=== PATIENT | female | born 1995 | race Caucasian/White ===

== ENCOUNTER 2017-03-13 18:22 | Emergency (ER) | payer MEDICAID ==
--- NOTE | 2017-03-13 19:33 | CPEKG ---
Heart Rate: 50 RR Interval: 1200 P-R Interval: 140 QRSD Interval: 82 QT Interval: 524 QTC Interval: 478 P Paulina: 31 QRS Paulina: 71 T Wave Paulina: 62 EKG Severity - BORDERLINE ECG - EKG Impression: SINUS RHYTHM EKG Impression: BORDERLINE PROLONGED QT INTERVAL Electronically Signed By: Marcelo Fan 13-Mar-2017 22:13:50
[2017-03-13] MEDS ORDERED: ONDANSETRON 4 MG/2 ML VIAL IVP ONE (20:19)
[2017-03-13] MEDS ORDERED: NS 1,000 ML IV ONE ×2 (20:26→21:35)
[2017-03-13 20:31] LABS: % IMMATURE GRANULYOCYTES 0.4 % (0.0-1.1); ABSOLUTE IMMATURE GRANULOCYTES 0.04 10^3/uL (0.00-0.10); ADD DIFF? NO; ADD MORPH? NO; ADD SCAN? NO; ATYPICAL LYMPHOCYTE FLAG 10 (0-99); FRAGMENT RBC FLAG 0 (0-99); HEMATOCRIT 41.4 % (38.0-47.0); HEMOGLOBIN 13.9 g/dL (12.6-16.3); LEFT SHIFT FLG 0 (0-99); LIPEMIA HEMOLYSIS FLAG 80 (0-99); MEAN CELL HEMOGLOBIN CONCENTR. 33.6 g/dL (32.4-36.7); MEAN CELL VOLUME 92.2 fL (81.5-99.8); MEAN PLATELET VOLUME 9.8 fL (8.7-11.7); PLATELET CLUMPS FLAG 0 (0-99); PLATELET COUNT 281 10^3/uL (150-400); RED BLOOD CELL COUNT 4.49 10^6/uL (4.18-5.33); RED CELL DISTRIBUTION WIDTH 12.4 % (11.5-15.2)
[2017-03-13 20:38] LABS: ANION GAP 13 mEq/L (8-16); CALCIUM 9.4 mg/dL (8.5-10.4); CARBON DIOXIDE 24 mEq/l (22-31); CHLORIDE 101 mEq/L (97-110); CREATININE 0.7 mg/dL (0.6-1.0); GLOMERULAR FILTRATION RATE > 60; GLUCOSE 86 mg/dL (70-100); POTASSIUM 3.9 mEq/L (3.5-5.2); SODIUM 138 mEq/L (134-144)
[2017-03-13] MEDS ORDERED: LORazepam 2 MG/ML INJ IVP ONE (20:59)
--- NOTE | 2017-03-13 21:14 | EDPHY ---
H & P Stated Complaint: hx insomnia/7 hrs ago took a freind 30mg narcotic pill/nausea Time Seen by Provider: 03/13/17 19:43 HPI/ROS: CHIEF COMPLAINT: Insomnia HISTORY OF PRESENT ILLNESS: The patient presents to the ED with issues surrounding ongoing insomnia. The patient is currently managing her symptoms of insomnia with Ambien. She reports that medication is having variable success with her Ambien. The patient did take a narcotic medication earlier this evening which was not prescribed to her. She took a 30 mg tablet approximately 8 hours ago. She did develop some nausea this evening. She was concerned that she may be developing a significant reaction presents to the ED for further evaluation. The patient denies suicidal or homicidal ideation. She has a history of trying multiple medications in the past for her insomnia including antipsychotics, trazodone and other medications such as Lunesta. The patient is adamant that she is not dangerous to herself. She is scheduled to follow up with her primary care provider regarding her ongoing insomnia. REVIEW OF SYSTEMS: A comprehensive 10 point review of systems is otherwise negative aside from elements mentioned in the history of present illness. Source: Patient Exam Limitations: No limitations - Personal History LMP (Females 10-55): 15-21 Days Ago Current Tetanus/Diphtheria Vaccine: No - Medical/Surgical History Hx Asthma: No Hx Chronic Respiratory Disease: No Hx Diabetes: No Hx Cardiac Disease: No Hx Renal Disease: No Hx Cirrhosis: No Hx Alcoholism: No Hx HIV/AIDS: No Hx Splenectomy or Spleen Trauma: No Other PMH: Lap 11/13/14. WPW, ablation 2011. chronic pain - Social History Smoking Status: Former smoker Alcohol Use: None Drug Use: None - Physical Exam Exam: General Appearance: Alert, no distress Eyes: Pupils equal and round no pallor or injection ENT, Mouth: Mucous membranes moist Respiratory: There are no retractions, lungs are clear to auscultation Cardiovascular: Regular rate and rhythm Gastrointestinal: Abdomen is soft and nontender, no masses, bowel sounds normal Neurological: A&O, normal motor function, normal sensory exam, normal cranial nerves Skin: Warm and dry, no rashes Musculoskeletal: Neck is supple nontender Extremities: symmetrical, full range of motion Psychiatric: Patient is oriented X 3, there is no agitation, denies suicidal ideation, normal thought process, denies hallucinations, does report insomnia Constitutional: Initial Vital Signs Temperature (C) 36.3 C 03/13/17 18:41 Heart Rate 45 L 03/13/17 18:41 Respiratory Rate 20 03/13/17 18:41 Blood Pressure 100/59 L 03/13/17 18:41 O2 Sat (%) 99 03/13/17 18:41 O2 Delivery Mode Room Air Allergies/Adverse Reactions: Sulfa (Sulfonamide Antibiotics) Allergy (Verified 03/13/17 18:40) Home Medications: Medication Instructions Recorded Ambien 03/13/17 Vicodin 5-300 mg Tablet 03/13/17 Medical Decision Making - Diagnostics EKG Interpretation: EKG: Complete interpretation has been separately recorded in the [facility] archive. Summary impression: Sinus rhythm, rate 50. ED Course/Re-evaluation: The patient was placed on a air vice marshal. She has no hypoxemia or evidence of respiratory depression. The patient was feeling mildly nauseous. She received 4 mg of IV Zofran. The patient was monitored in the ED for several hours without evidence of hypoxemia. The patient does plan to follow up with her regular primary care provider regarding her ongoing insomnia. The patient will be discharged home with customary aftercare instructions and return precautions. Patient is given the contact number for [facility]. She may need to follow up with a psychiatrist regarding her fairly refractory insomnia. Differential Diagnosis: Differential diagnosis considered includes narcotic overdose, insomnia, respiratory depression, arrhythmia - Data Points Laboratory Results: Laboratory Results 03/13/17 20:05 03/13/17 20:05 03/13/17 03/13/17 03/13/17 20:05 20:05 20:05 WBC 8.95 10^3/uL 10^3/uL (3.80-9.50) RBC 4.49 10^6/uL 10^6/uL (4.18-5.33) Hgb 13.9 g/dL g/dL (12.6-16.3) Hct 41.4 % % (38.0-47.0) MCV 92.2 fL fL (81.5-99.8) MCH 31.0 pg pg (27.9-34.1) MCHC 33.6 g/dL g/dL (32.4-36.7) RDW 12.4 % % (11.5-15.2) Plt Count 281 10^3/uL 10^3/uL (150-400) MPV 9.8 fL fL (8.7-11.7) Neut % (Auto) 62.5 % % (39.3-74.2) Lymph % (Auto) 24.6 % % (15.0-45.0) [place] % (Auto) 8.2 % % (4.5-13.0) Eos % (Auto) 3.9 % % (0.6-7.6) Baso % (Auto) 0.4 % % (0.3-1.7) Nucleat RBC Rel Count 0.0 % % (0.0-0.2) Absolute Neuts (auto) 5.59 10^3/uL 10^3/uL (1.70-6.50) Absolute Lymphs (auto) 2.20 10^3/uL 10^3/uL (1.00-3.00) Absolute Monos (auto) 0.73 10^3/uL 10^3/uL (0.30-0.80) Absolute Eos (auto) 0.35 10^3/uL 10^3/uL (0.03-0.40) Absolute Basos (auto) 0.04 10^3/uL 10^3/uL (0.02-0.10) Absolute Nucleated RBC 0.00 10^3/uL 10^3/uL (0-0.01) Immature Gran % 0.4 % % (0.0-1.1) Immature Gran # 0.04 10^3/uL 10^3/uL (0.00-0.10) Sodium 138 mEq/L mEq/L (134-144) Potassium 3.9 mEq/L mEq/L (3.5-5.2) Chloride 101 mEq/L mEq/L (97-110) Carbon Dioxide 24 mEq/l mEq/l (22-31) Anion Gap 13 mEq/L mEq/L (8-16) BUN 13 mg/dL mg/dL (7-23) Creatinine 0.7 mg/dL mg/dL (0.6-1.0) Estimated GFR > 60 Glucose 86 mg/dL mg/dL (70-100) Calcium 9.4 mg/dL mg/dL (8.5-10.4) Beta HCG, Qual NEGATIVE Medications Given: Discontinued Medications Sodium Chloride (Ns) 1,000 mls @ 0 mls/hr IV ONCE ONE PRN Reason: Wide Open Stop: 03/13/17 20:27 Last Admin: 03/13/17 20:30 Dose: 1,000 mls Lorazepam (Ativan Injection) 1 mg IVP EDNOW ONE Stop: 03/13/17 21:00 Last Admin: 03/13/17 21:35 Dose: 1 mg Ondansetron HCl (Zofran) 4 mg IVP EDNOW ONE Stop: 03/13/17 20:20 Last Admin: 03/13/17 20:24 Dose: 4 mg Departure - Departure Disposition: Home, Routine, Self-Care Clinical Impression: Insomnia Condition: Good Instructions: Insomnia (ED) Additional Instructions: 1. Please follow-up with your primary care provider as scheduled. 2. Please return to the emergency department for any worsening symptoms or other concerns. 3. [facility] does operate a 24/7 psychiatric crisis unit located at [address] [place] [address]. The telephone number for the 24 hour crisis center is [phone]. 4. Please return to the ED if you are feeling suicidal, having thoughts of harming yourself/others or should you feel unsafe or have worsening symptoms. Referrals: [facility],. [Clinic] - As per Instructions
[2017-03-13] MEDS ORDERED: LORazepam 2 MG/ML INJ ONE (21:29)
[2017-03-13 22:57] VITALS: BP 107/68; PULSE 56; RESP 14; TEMP 97.7; O2SAT 95
== END 2017-03-13 22:56 | disposition home or self-care (01) ==
DX: G47.00 Insomnia, unspecified (principal); Z87.891 Personal history of nicotine dependence
CPT/HCPCS: 96374; J2060; J2405

== ENCOUNTER 2017-06-20 16:57 | Emergency (ER) | payer MEDICAID ==
[2017-06-20] MEDS ORDERED: NS 1,000 ML IV ONE (17:00)
[2017-06-20] MEDS ORDERED: DIAZEPAM 10 MG/2 ML SYR IVP ONE (17:01)
[2017-06-20 17:11] VITALS: TEMP 97.3
[2017-06-20 17:24] LABS: % IMMATURE GRANULYOCYTES 0.3 % (0.0-1.1); ABSOLUTE IMMATURE GRANULOCYTES 0.03 10^3/uL (0.00-0.10); ADD DIFF? NO; ADD MORPH? NO; ADD SCAN? NO; ATYPICAL LYMPHOCYTE FLAG 10 (0-99); FRAGMENT RBC FLAG 0 (0-99); HEMATOCRIT 36.9 % (38.0-47.0); HEMOGLOBIN 12.8 g/dL (12.6-16.3); LEFT SHIFT FLG 0 (0-99); LIPEMIA HEMOLYSIS FLAG 90 (0-99); MEAN CELL HEMOGLOBIN 30.8 pg (27.9-34.1); MEAN CELL HEMOGLOBIN CONCENTR. 34.7 g/dL (32.4-36.7); MEAN CELL VOLUME 88.9 fL (81.5-99.8); MEAN PLATELET VOLUME 9.3 fL (8.7-11.7); PLATELET CLUMPS FLAG 0 (0-99); PLATELET COUNT 299 10^3/uL (150-400); RED BLOOD CELL COUNT 4.15 10^6/uL (4.18-5.33); RED CELL DISTRIBUTION WIDTH 12.1 % (11.5-15.2)
--- NOTE | 2017-06-20 17:36 | EDPHY ---
H & P Time Seen by Provider: 06/20/17 17:32 HPI/ROS: HPI: Ms Espinal is a 21 yrs, female who presents with Chief Complaint: Menstrual cramps Location: pelvic Quality: Cramping Duration: Starting this morning, lasting approximately 3-5 hours Signs and Symptoms: no vaginal discharge, no nausea, no vomiting, no diarrhea, no dysuria, no indigestion Timing: Sudden onset intermittent in nature Severity: 08/11 Context: Patient has a history of endometriosis diagnosed by a laparoscopy per patient unable to obtain chart for review as performed outside hospital as well as severe menstrual cramping. She has been followed by pain management at the [facility] and is on a pain contract over the last 1-3 months. She is on Percocet 10 mg every 4-6 hours daily. States that her mom disturbance medications to her but she does not have any medication pills on her currently. Menses started this morning. cycles normal only every 28-30 days lasting approximately 7 days with a menstrual cramping being most severe in days 1 through 3. Last menstrual period is now. Patient reports that pain now is similar to prior episodes. Denies any new or different symptoms today as compared to the prior episodes. Modifying Factors: Has not tried any [id number] medications including NSAID. EMS gave the patient fentanyl on route to the ER. Comment: ROS: Eyes: No blurred vision Respiratory: No shortness of breath, no cough Cardiovascular: No chest pain Gastrointestinal: No nausea, no vomiting no diarrhea Genitourinary: No dysuria Extremities: No myalgias Neurologic: No weakness, no numbness Skin: No rashes Hematologic: No bruising, no bleeding MEDICAL/SURGICAL HISTORY: Cardiac surgery secondary to [id number]-[id number] with ablation in 2011. Denies history of asthma, chronic respiratory disease, diabetes, renal disease, cirrhosis, HIV/aids, Social History: Former smoker. Smoking Status: Former smoker Physical Exam: CONSTITUTIONAL: Extremely well-appearing in young adult white female, awake and alert, no obvious distress HEENT: Atraumatic and normocephalic, PERRL, EOMI. Tympanic membranes clear. Oropharynx clear, no exudate and moist pink mucosa. Airway patent. No lymphadenopathy. No meningismus. Cardiovascular: Normal S1/S2, regular rate, regular rhythm, without murmur rub or gallop. PULMONARY/CHEST: Symmetrical and nontender. Clear to auscultation bilaterally Good air movement. No accessory muscle usage. ABDOMEN: Soft, nondistended, mild lower abdomen nonfocal tenderness, no rebound , no guarding, no peritoneal signs, no masses or organomegaly. No CVAT. EXTREMITIES: 2/2 pulses, no deformities, no clubbing, no cyanosis or edema. NEUROLOGICAL: no focal neuro deficits. GCS 15. SKIN: Warm and dry, no erythema. no rash. Good capillary refill. Constitutional: Initial Vital Signs Temperature (C) 36.3 C 06/20/17 17:10 Heart Rate 88 06/20/17 17:10 Respiratory Rate 18 06/20/17 17:10 Blood Pressure 113/74 06/20/17 17:10 O2 Sat (%) 94 06/20/17 17:10 O2 Delivery Mode Room Air Allergies/Adverse Reactions: Sulfa (Sulfonamide Antibiotics) Allergy (Verified 03/13/17 18:40) Home Medications: Medication Instructions Recorded Ambien 03/13/17 Vicodin 5-300 mg Tablet 03/13/17 Cyclobenzaprine [Flexeril 10 MG 10 mg PO TID PRN #15 tab 06/20/17 (*)] Medical Decision Making ED Course/Re-evaluation: Labs, urinalysis, urine , IV fluids, IV medications Advised patient that as she is on pain management contract that ER will not prescribe chronic opiate pain medications Given 1 L normal saline and IV Valium 5 mg for muscle cramps Afebrile. No systemic signs. Revealed pelvic ultrasound on 05/27/2016 results that showed bilateral adnexal vasculature and possible pelvic congestion syndrome. UA shows no signs of infection Advised to follow up with [facility]ALTH[facility]ARE [facility] and pain management Moderate pain relief at discharge. Will give prescription for some muscle relaxers for dysmenorrhea until her follow-up pain management appointment in 1 week. Differential Diagnosis: Abdominal pain in a female including but not limited to ovarian cyst, pelvic inflammatory disease, ovarian torsion, urinary tract infection, and appendicitis. - Data Points Laboratory Results: Laboratory Results 06/20/17 17:10 06/20/17 17:10 06/20/17 06/20/17 06/20/17 18:54 18:50 17:10 WBC RBC Hgb Hct MCV MCH MCHC RDW Plt Count MPV Neut % (Auto) Lymph % (Auto) [place] % (Auto) Eos % (Auto) Baso % (Auto) Nucleat RBC Rel Count Absolute Neuts (auto) Absolute Lymphs (auto) Absolute Monos (auto) Absolute Eos (auto) Absolute Basos (auto) Absolute Nucleated RBC Immature Gran % Immature Gran # Sodium 139 mEq/L mEq/L (134-144) Potassium 4.0 mEq/L mEq/L (3.5-5.2) Chloride 105 mEq/L mEq/L (97-110) Carbon Dioxide 20 mEq/l L mEq/l (22-31) Anion Gap 14 mEq/L mEq/L (8-16) BUN 6 mg/dL L mg/dL (7-23) Creatinine 0.7 mg/dL mg/dL (0.6-1.0) Estimated GFR > 60 Glucose 85 mg/dL mg/dL (70-100) Calcium 9.6 mg/dL mg/dL (8.5-10.4) Total Bilirubin 0.4 mg/dL mg/dL (0.1-1.4) Conjugated Bilirubin 0.2 mg/dL mg/dL (0.0-0.5) Unconjugated Bilirubin 0.2 mg/dL mg/dL (0.0-1.1) AST 15 IU/L IU/L (14-46) ALT 24 IU/L IU/L (9-52) Alkaline Phosphatase 54 IU/L IU/L (38-126) Total Protein 7.3 g/dL g/dL (6.3-8.2) Albumin 4.3 g/dL g/dL (3.5-5.0) Lipase 116 IU/L IU/L (23-300) Urine Color YELLOW Urine Appearance CLEAR Urine pH 7.0 (5.0-7.5) Ur Specific [place] 1.012 (1.002-1.030) Urine Protein NEGATIVE (NEGATIVE) Urine Ketones TRACE H (NEGATIVE) Urine Blood 2+ H (NEGATIVE) Urine Nitrate NEGATIVE (NEGATIVE) Urine Bilirubin NEGATIVE (NEGATIVE) Urine Urobilinogen NEGATIVE EU EU (0.2-1.0) Ur Leukocyte Esterase NEGATIVE (NEGATIVE) Urine RBC 1-3 /hpf /hpf (0-3) Urine WBC 1-3 /hpf /hpf (0-3) Ur Epithelial Cells TRACE /lpf /lpf (NONE-1+) Urine Mucus TRACE /lpf /lpf (NONE-1+) Urine Glucose NEGATIVE (NEGATIVE) Urine Test NEGATIVE 06/20/17 17:10 WBC 9.03 10^3/uL 10^3/uL (3.80-9.50) RBC 4.15 10^6/uL L 10^6/uL (4.18-5.33) Hgb 12.8 g/dL g/dL (12.6-16.3) Hct 36.9 % L % (38.0-47.0) MCV 88.9 fL fL (81.5-99.8) MCH 30.8 pg pg (27.9-34.1) MCHC 34.7 g/dL g/dL (32.4-36.7) RDW 12.1 % % (11.5-15.2) Plt Count 299 10^3/uL 10^3/uL (150-400) MPV 9.3 fL fL (8.7-11.7) Neut % (Auto) 62.9 % % (39.3-74.2) Lymph % (Auto) 27.6 % % (15.0-45.0) [place] % (Auto) 6.9 % % (4.5-13.0) Eos % (Auto) 1.9 % % (0.6-7.6) Baso % (Auto) 0.4 % % (0.3-1.7) Nucleat RBC Rel Count 0.0 % % (0.0-0.2) Absolute Neuts (auto) 5.68 10^3/uL 10^3/uL (1.70-6.50) Absolute Lymphs (auto) 2.49 10^3/uL 10^3/uL (1.00-3.00) Absolute Monos (auto) 0.62 10^3/uL 10^3/uL (0.30-0.80) Absolute Eos (auto) 0.17 10^3/uL 10^3/uL (0.03-0.40) Absolute Basos (auto) 0.04 10^3/uL 10^3/uL (0.02-0.10) Absolute Nucleated RBC 0.00 10^3/uL 10^3/uL (0-0.01) Immature Gran % 0.3 % % (0.0-1.1) Immature Gran # 0.03 10^3/uL 10^3/uL (0.00-0.10) Sodium Potassium Chloride Carbon Dioxide Anion Gap BUN Creatinine Estimated GFR Glucose Calcium Total Bilirubin Conjugated Bilirubin Unconjugated Bilirubin AST ALT Alkaline Phosphatase Total Protein Albumin Lipase Urine Color Urine Appearance Urine pH Ur Specific [place] Urine Protein Urine Ketones Urine Blood Urine Nitrate Urine Bilirubin Urine Urobilinogen Ur Leukocyte Esterase Urine RBC Urine WBC Ur Epithelial Cells Urine Mucus Urine Glucose Urine Test Medications Given: Discontinued Medications Diazepam (Valium Injection) 5 mg IVP EDNOW ONE Stop: 06/20/17 17:02 Last Admin: 06/20/17 17:27 Dose: 5 mg Sodium Chloride (Ns) 1,000 mls @ 0 mls/hr IV EDNOW ONE; Wide Open PRN Reason: Protocol Stop: 06/20/17 17:01 Last Admin: 06/20/17 17:27 Dose: 1,000 mls Ketamine HCl (Ketamine) 50 mg NASAL EDNOW ONE Stop: 06/20/17 17:53 Last Admin: 06/20/17 18:00 Dose: 50 mg Ketorolac Tromethamine (Toradol) 30 mg IVP EDNOW ONE Stop: 06/20/17 17:53 Last Admin: 06/20/17 18:01 Dose: 30 mg Ondansetron HCl (Zofran) 4 mg IVP EDNOW ONE Stop: 06/20/17 17:55 Last Admin: 06/20/17 17:58 Dose: 4 mg Departure - Departure Disposition: Home, Routine, Self-Care Clinical Impression: Dysmenorrhea Clinical Impression: (Ruled Out): Menorrhagia with regular cycle Condition: Good Instructions: Dysmenorrhea (ED) Referrals: Patient,NotPresent [Unknown] - As per Instructions Immanuel Maddox MD [Medical Doctor] - As per Instructions (Follow up [facility] ) Prescriptions: Cyclobenzaprine [Flexeril 10 MG (*)] 10 mg PO TID PRN #15 tab PRN Reason: Spasms
[2017-06-20 17:43] LABS: ALANINE AMINOTRANSFERASE 24 IU/L (9-52); ALBUMIN 4.3 g/dL (3.5-5.0); ALKALINE PHOSPHATASE 54 IU/L (38-126); ANION GAP 14 mEq/L (8-16); ASPARTATE AMINOTRANSFERASE 15 IU/L (14-46); BILIRUBIN,TOTAL 0.4 mg/dL (0.1-1.4); BILIRUBIN-CONJUGATED 0.2 mg/dL (0.0-0.5); BILIRUBIN-UNCONJUGATED 0.2 mg/dL (0.0-1.1); CALCIUM 9.6 mg/dL (8.5-10.4); CARBON DIOXIDE 20 mEq/l (22-31); CHLORIDE 105 mEq/L (97-110); CREATININE 0.7 mg/dL (0.6-1.0); GLOMERULAR FILTRATION RATE > 60; GLUCOSE 85 mg/dL (70-100); SODIUM 139 mEq/L (134-144); TOTAL PROTEIN 7.3 g/dL (6.3-8.2)
[2017-06-20] MEDS ORDERED: KETAMINE 500 MG/10 ML VIAL NASAL ONE (17:52)
[2017-06-20] MEDS ORDERED: KETOROLAC 15 MG/1 ML SDV IVP ONE (17:52)
[2017-06-20] MEDS ORDERED: ONDANSETRON 4 MG/2 ML VIAL IVP ONE (17:54)
[2017-06-20 18:25] VITALS: O2SAT 98
[2017-06-20 18:58] LABS: COLOR YELLOW; LEUKOCYTE ESTERASE,URINE NEGATIVE (NEGATIVE); NITRITE,URINE NEGATIVE (NEGATIVE)
[2017-06-20 19:00] LABS: MUCUS TRACE /lpf (NONE-1+)
[2017-06-20 19:49] VITALS: BP 103/78; PULSE 78; RESP 15
== END 2017-06-20 19:49 | disposition home or self-care (01) ==
LOC: EDUNIT#
DX: N94.6 Dysmenorrhea, unspecified (principal); E86.9 Volume depletion, unspecified; Z87.891 Personal history of nicotine dependence
CPT/HCPCS: 96374; J1885; J2405

== ENCOUNTER 2017-10-04 20:25 | Emergency (ER) | payer MEDICAID ==
--- NOTE | 2017-10-04 20:59 | EDPHY ---
H & P Time Seen by Provider: 10/04/17 20:43 HPI/ROS: CHIEF COMPLAINT: Neck and back stiffness HISTORY OF PRESENT ILLNESS: The patient is a 21-year-old female who presents emergency department with neck and back stiffness x3 days. She feels as though she cannot turn her head. Denies your symptoms worsen then she had significant pain with even the slightest movement of her neck. The patient took 3 Vicodin tablets and states her symptoms are improved at this point. Patient has no numbness or tingling. Her mother states she felt hot and the patient reports chills. Patient states that she has mild light sensitivity. She has had no nausea or vomiting. Patient states that she has felt diffusely achy and "slightly sick" since this morning. REVIEW OF SYSTEMS: My complete review of systems is negative except as mentioned in the HPI. Past Medical/Surgical History: Includes WPW, chronic pain Past surgical history: Ablation Social history: The patient does not smoke. Smoking Status: Former smoker Physical Exam: 36.7, 104/64, 113, 18, 95% on room air GENERAL: Well-appearing, in no acute distress, alert. HEENT: Eyes normal to inspection, normal pharynx, no signs of dehydration. NECK: No thyromegaly, no lymphadenopathy, supple. No spinal tenderness. The patient does have resistance to voluntarily moving her neck due to the pain. Negative Kernig sign. Due to the patient's discomfort she would not allow me to perform Brudzinski's RESPIRATORY: Clear to auscultation bilaterally, no rales, rhonchi or wheezing. CVS: Regular rate and rhythm, no rubs, murmurs, or gallops. ABDOMEN: Soft, nontender, nondistended, no organomegaly. BACK: Normal to inspection, no CVA tenderness. SKIN: Normal color, no rash, warm, dry. No pallor. EXTREMITIES: No pedal edema, no calf tenderness, no Homans sign or cords, no joint swelling. NEURO/PSYCH: Higher functions: Alert and Oriented x3. Normal speech and cognition. Normal mood and affect. Cranial nerves: Normal as tested. Cerebellar: Normal as tested. Good finger to nose, good [id number], normal gait. Peripheral exam: Normal motor exam. Normal sensation. Normal reflexes. Constitutional: Initial Vital Signs Temperature (C) 36.7 C 10/04/17 20:28 Heart Rate 113 H 10/04/17 20:28 Respiratory Rate 18 10/04/17 20:28 Blood Pressure 104/64 10/04/17 20:28 O2 Sat (%) 95 10/04/17 20:28 O2 Delivery Mode Room Air Allergies/Adverse Reactions: Sulfa (Sulfonamide Antibiotics) Allergy (Verified 03/13/17 18:40) Home Medications: Medication Instructions Recorded Ambien 03/13/17 Vicodin 5-300 mg Tablet 03/13/17 Ibuprofen 600 mg PO TID #15 tablet 10/04/17 LORazepam [Ativan (*)] 1 mg PO TID #11 tab 10/04/17 oxyCODONE/APAP 5/325 [Percocet 1 - 2 tab PO Q4PRN PRN #11 tab 10/04/17 5/325 (*)] Medical Decision Making ED Course/Re-evaluation: In the emergency department I discussed possible etiologies with the patient and her mother. I answered all her questions. Patient was given Toradol 30 mg IV, fentanyl 25 mg IV, Valium 2.5 mg IV. Laboratory studies were ordered. 2200: I rechecked the patient. She states she is feeling better after the medication. She points to the left side of her neck and states that it has mild discomfort to light touch. She is able to turn her head fully to the right to show me the left side of her neck. Kernig's and Brudzinski sign are negative. No focal neurologic deficit. Repeat vital signs: 36.6, 90/57, 74, 15, 95% on room air 2220: Patient is feeling better. She has no focal neurologic deficits on exam. No signs of meningismus. 1050: Patient again states that she is feeling better. She is able to range her neck. She has no focal neurologic deficits. No signs of meningismus. I discussed the plan with the patient. I answered all her questions. She will be given a prescription of Percocet and Ativan. This will treat pain and muscle spasm. She was instructed not to use Vicodin with Percocet. She is given warnings prior to leaving. She will return with worsening symptoms. Differential Diagnosis: My differential includes but is not limited to meningitis, muscle spasm, mass, malignancy, hematoma, disc herniation - Data Points Laboratory Results: Laboratory Results 10/04/17:50 10/04/17 20:50 10/04/17 10/04/17 10/04/17 20:50 20:50 20:50 WBC 6.24 10^3/uL 10^3/uL (3.80-9.50) RBC 4.31 10^6/uL 10^6/uL (4.18-5.33) Hgb 13.4 g/dL g/dL (12.6-16.3) Hct 37.8 % L % (38.0-47.0) MCV 87.7 fL fL (81.5-99.8) MCH 31.1 pg pg (27.9-34.1) MCHC 35.4 g/dL g/dL (32.4-36.7) RDW 12.3 % % (11.5-15.2) Plt Count 212 10^3/uL 10^3/uL (150-400) MPV 9.8 fL fL (8.7-11.7) Neut % (Auto) 78.3 % H % (39.3-74.2) Lymph % (Auto) 14.7 % L % (15.0-45.0) [place] % (Auto) 5.0 % % (4.5-13.0) Eos % (Auto) 1.3 % % (0.6-7.6) Baso % (Auto) 0.5 % % (0.3-1.7) Nucleat RBC Rel Count 0.0 % % (0.0-0.2) Absolute Neuts (auto) 4.89 10^3/uL 10^3/uL (1.70-6.50) Absolute Lymphs (auto) 0.92 10^3/uL L 10^3/uL (1.00-3.00) Absolute Monos (auto) 0.31 10^3/uL 10^3/uL (0.30-0.80) Absolute Eos (auto) 0.08 10^3/uL 10^3/uL (0.03-0.40) Absolute Basos (auto) 0.03 10^3/uL 10^3/uL (0.02-0.10) Absolute Nucleated RBC 0.00 10^3/uL 10^3/uL (0-0.01) Immature Gran % 0.2 % % (0.0-1.1) Immature Gran # 0.01 10^3/uL 10^3/uL (0.00-0.10) Sodium 139 mEq/L mEq/L (134-144) Potassium 4.1 mEq/L mEq/L (3.5-5.2) Chloride 104 mEq/L mEq/L (97-110) Carbon Dioxide 20 mEq/l L mEq/l (22-31) Anion Gap 15 mEq/L mEq/L (8-16) BUN 8 mg/dL mg/dL (7-23) Creatinine 0.8 mg/dL mg/dL (0.6-1.0) Estimated GFR > 60 Glucose 86 mg/dL mg/dL (70-100) Calcium 9.4 mg/dL mg/dL (8.5-10.4) Beta HCG, Qual NEGATIVE Medications Given: Discontinued Medications Diazepam (Valium Injection) 2.5 mg IVP EDNOW ONE Stop: 10/04/17 21:02 Last Admin: 10/04/17 21:17 Dose: 2.5 mg Fentanyl (Sublimaze) 25 mcg IVP EDNOW ONE Stop: 10/04/17 21:01 Last Admin: 10/04/17 21:16 Dose: 25 mcg Ketorolac Tromethamine (Toradol) 30 mg IVP EDNOW ONE Stop: 10/04/17 21:01 Last Admin: 10/04/17 21:16 Dose: 30 mg Departure - Departure Disposition: Home, Routine, Self-Care Clinical Impression: Neck pain Back pain Qualifiers: Back pain location: back pain in other location Chronicity: acute Qualified Code(s): M54.9 - Dorsalgia, unspecified Condition: Fair Instructions: Oxycodone/Acetaminophen (By mouth), Lorazepam (By mouth), Acute Neck Pain (ED) Additional Instructions: Return with increasing pain, fever, weakness, numbness, headache or any other concerns. Referrals: [facility] [Other] - 1-2 days without fail Prescriptions: Ibuprofen 600 mg PO TID #15 tablet LORazepam [Ativan (*)] 1 mg PO TID #11 tab oxyCODONE/APAP 5/325 [Percocet 5/325 (*)] 1 - 2 tab PO Q4PRN PRN #11 tab PRN Reason: For Moderate To Severe Pain
[2017-10-04] MEDS ORDERED: fentaNYL 100 MCG/2 ML INJ IVP ONE (21:00)
[2017-10-04] MEDS ORDERED: KETOROLAC 30 MG/1 ML SDV IVP ONE (21:00)
[2017-10-04] MEDS ORDERED: DIAZEPAM 10 MG/2 ML SYR IVP ONE (21:01)
[2017-10-04 21:07] LABS: % IMMATURE GRANULYOCYTES 0.2 % (0.0-1.1); ABSOLUTE IMMATURE GRANULOCYTES 0.01 10^3/uL (0.00-0.10); ADD DIFF? NO; ADD MORPH? NO; ADD SCAN? NO; ATYPICAL LYMPHOCYTE FLAG 0 (0-99); FRAGMENT RBC FLAG 0 (0-99); HEMATOCRIT 37.8 % (38.0-47.0); HEMOGLOBIN 13.4 g/dL (12.6-16.3); LEFT SHIFT FLG 0 (0-99); LIPEMIA HEMOLYSIS FLAG 90 (0-99); MEAN CELL HEMOGLOBIN 31.1 pg (27.9-34.1); MEAN CELL HEMOGLOBIN CONCENTR. 35.4 g/dL (32.4-36.7); MEAN CELL VOLUME 87.7 fL (81.5-99.8); MEAN PLATELET VOLUME 9.8 fL (8.7-11.7); PLATELET CLUMPS FLAG 0 (0-99); PLATELET COUNT 212 10^3/uL (150-400); RED BLOOD CELL COUNT 4.31 10^6/uL (4.18-5.33); RED CELL DISTRIBUTION WIDTH 12.3 % (11.5-15.2)
[2017-10-04 21:13] LABS: ANION GAP 15 mEq/L (8-16); CALCIUM 9.4 mg/dL (8.5-10.4); CARBON DIOXIDE 20 mEq/l (22-31); CHLORIDE 104 mEq/L (97-110); CREATININE 0.8 mg/dL (0.6-1.0); GLOMERULAR FILTRATION RATE > 60; GLUCOSE 86 mg/dL (70-100); POTASSIUM 4.1 mEq/L (3.5-5.2); SODIUM 139 mEq/L (134-144)
[2017-10-04 21:25] VITALS: RESP 16
[2017-10-04] MEDS ORDERED: LORAZEPAM 1 MG PREPACK#4 BTL TAKEHOME ONE (22:45)
[2017-10-04] MEDS ORDERED: OXYCODONE/APAP 5/325MG PREPACK#4 BTL TAKEHOME ONE (22:45)
[2017-10-04] MEDS ORDERED: ONDANSETRON 4MG PREPACK#2 BTL TAKEHOME ONE (22:51)
[2017-10-04 23:31] VITALS: BP 95/57; PULSE 70; TEMP 97.3; O2SAT 95
== END 2017-10-04 23:27 | disposition home or self-care (01) ==
DX: M54.2 Cervicalgia (principal); M54.9 Dorsalgia, unspecified; Z87.891 Personal history of nicotine dependence
CPT/HCPCS: 96374; J1885; J3010

== ENCOUNTER 2017-10-10 13:29 | Emergency (ER) | payer MEDICAID ==
[2017-10-10] MEDS ORDERED: NS 1,000 ML IV ONE (13:34)
--- NOTE | 2017-10-10 13:46 | EDPHY ---
H & P HPI/ROS: CHIEF COMPLAINT: Neck and back pain HISTORY OF PRESENT ILLNESS: The patient is a 21-year-old female who presents emergency department for 2nd time with ongoing neck and back stiffness. She was seen in the emergency department on 10/04/2017 by me. The patient states that the medication that she was discharged on improved her symptoms and she was doing better. However she ran out of those medications and is now back. She states her pain is worse when she sleeps at night. She denies any fever. She has had mild chills when her pain gets severe. She has had no focal weakness or numbness. No photophobia. No vomiting. REVIEW OF SYSTEMS: My complete review of systems is negative except as mentioned in the HPI. Past Medical/Surgical History: Includes WPW, chronic pain Past surgical history: Ablation Social history: The patient does not smoke Smoking Status: Former smoker Physical Exam: GENERAL: Well-appearing, in no acute distress, alert. HEENT: Eyes normal to inspection, normal pharynx, no signs of dehydration. NECK: C-collar in place. Placed by EMS. No thyromegaly, no lymphadenopathy, supple. No midline cervical tenderness palpation. Nexus negative. Patient is able to range her head slightly from side to side. No signs of meningismus. Negative Kernig's RESPIRATORY: Clear to auscultation bilaterally, no rales, rhonchi or wheezing. CVS: Regular rate and rhythm, no rubs, murmurs, or gallops. ABDOMEN: Soft, nontender, nondistended, no organomegaly. BACK: Normal to inspection, no CVA tenderness. SKIN: Normal color, no rash, warm, dry. No pallor. EXTREMITIES: No pedal edema, no calf tenderness, no Homans sign or cords, no joint swelling. NEURO/PSYCH: Higher functions: Alert and Oriented x3. Normal speech and cognition. Normal mood and affect. Cranial nerves: Normal as tested. Cerebellar: Normal as tested. Good finger to nose, good [id number], normal gait. Peripheral exam: Normal motor exam. Normal sensation. Normal reflexes. Constitutional: Initial Vital Signs Temperature (C) 36.7 C 10/10/17 13:32 Heart Rate 58 L 10/10/17 13:32 Respiratory Rate 18 10/10/17 13:32 Blood Pressure 89/51 L 10/10/17 13:32 O2 Sat (%) 96 10/10/17 13:32 O2 Delivery Mode Room Air Allergies/Adverse Reactions: Sulfa (Sulfonamide Antibiotics) Allergy (Verified 03/13/17 18:40) Home Medications: Medication Instructions Recorded Ambien 03/13/17 Vicodin 5-300 mg Tablet 03/13/17 Ibuprofen 600 mg PO TID #15 tablet 10/04/17 LORazepam [Ativan (*)] 1 mg PO TID #11 tab 10/04/17 oxyCODONE/APAP 5/325 [Percocet 1 - 2 tab PO Q4PRN PRN #11 tab 10/04/17 5/325 (*)] Cyclobenzaprine [Flexeril] 10 mg PO TID #15 tab 10/10/17 oxyCODONE/APAP 5/325 [Percocet 1 - 2 tab PO Q4PRN PRN #15 tab 10/10/17 5/325 (*)] Medical Decision Making - Diagnostics Imaging Results: Imaging Impressions Cervical Spine MRI 10/10/17 13:48 Impression: 1. Negative MRI examination of the cervical spine. Results called to Dr. Roberta Marina at 3:30 PM ED Course/Re-evaluation: In the Emergency arm discussed possible etiologies with the patient answered all her questions. He is placed in IV. They gave her fentanyl 150 mcg IV. She is given normal saline 500 mL IV for hydration. She was given Valium 5 mg IV for muscle discomfort/spasm. Patient has her 2nd visit to the emergency department. I ordered an MRI of her cervical spine. This is to ensure that her pain is not secondary to disc herniation or other surgical issue. I think it is okay the patient has bacterial meningitis. She is afebrile with a temperature of 36.7degrees. She does not appear septic or toxic. Patient is white blood cell count is normal. She is mildly anemic with hematocrit of 35. Chemistry panel is unremarkable. MRI is cervical spine: Please refer the dictated report by Dr. Brandon Tilley. No acute disease noted. 15 30: I went rechecked the patient. She states she was feeling better. She had more movement of her neck. She had no focal neurologic deficits. I discussed results with the patient. I answered all her questions. I offered her admission to the hospital for further treatment and care. She would prefer discharge home. She states her symptoms feel better. She was given a repeat prescription for Percocet and Flexeril. She will follow up with primary care physician on Thursday. She is given warnings prior to leaving. I do not feel the patient needs a lumbar puncture this time. I do not feel this is meningitis. The patient was given a dose of Toradol prior to leaving to help with the symptoms returning. Differential Diagnosis: My differential includes but is not limited to neck spasm, cervical strain, torticollis, disc herniation, mass, malignancy, viral meningitis, bacterial meningitis - Data Points Laboratory Results: Laboratory Results 10/10/17 13:30 10/10/17 13:30 10/10/17 10/10/17 10/10/17 13:30 13:30 13:30 WBC 6.52 10^3/uL 10^3/uL (3.80-9.50) RBC 4.09 10^6/uL L 10^6/uL (4.18-5.33) Hgb 12.5 g/dL L g/dL (12.6-16.3) Hct 35.7 % L % (38.0-47.0) MCV 87.3 fL fL (81.5-99.8) MCH 30.6 pg pg (27.9-34.1) MCHC 35.0 g/dL g/dL (32.4-36.7) RDW 12.4 % % (11.5-15.2) Plt Count 325 10^3/uL 10^3/uL (150-400) MPV 9.4 fL fL (8.7-11.7) Neut % (Auto) 48.6 % % (39.3-74.2) Lymph % (Auto) 41.1 % % (15.0-45.0) [place]aines % (Auto) 7.8 % % (4.5-13.0) Eos % (Auto) 1.7 % % (0.6-7.6) Baso % (Auto) 0.6 % % (0.3-1.7) Nucleat RBC Rel Count 0.0 % % (0.0-0.2) Absolute Neuts (auto) 3.17 10^3/uL 10^3/uL (1.70-6.50) Absolute Lymphs (auto) 2.68 10^3/uL 10^3/uL (1.00-3.00) Absolute Monos (auto) 0.51 10^3/uL 10^3/uL (0.30-0.80) Absolute Eos (auto) 0.11 10^3/uL 10^3/uL (0.03-0.40) Absolute Basos (auto) 0.04 10^3/uL 10^3/uL (0.02-0.10) Absolute Nucleated RBC 0.00 10^3/uL 10^3/uL (0-0.01) Immature Gran % 0.2 % % (0.0-1.1) Immature Gran # 0.01 10^3/uL 10^3/uL (0.00-0.10) Sodium 144 mEq/L mEq/L (134-144) Potassium 4.0 mEq/L mEq/L (3.5-5.2) Chloride 107 mEq/L mEq/L (97-110) Carbon Dioxide 21 mEq/l L mEq/l (22-31) Anion Gap 16 mEq/L mEq/L (8-16) BUN 9 mg/dL mg/dL (7-23) Creatinine 0.8 mg/dL mg/dL (0.6-1.0) Estimated GFR > 60 Glucose 74 mg/dL mg/dL (70-100) Calcium 9.7 mg/dL mg/dL (8.5-10.4) Beta HCG, Qual NEGATIVE Medications Given: Discontinued Medications Diazepam (Valium Injection) 5 mg IVP EDNOW ONE Stop: 10/10/17 13:49 Last Admin: 10/10/17 14:02 Dose: 5 mg Sodium Chloride (Ns) 1,000 mls @ 0 mls/hr IV ONCE ONE PRN Reason: Wide Open Stop: 10/10/17 13:35 Last Admin: 10/10/17 13:36 Dose: 1,000 mls Departure - Departure Disposition: Home, Routine, Self-Care Clinical Impression: Neck pain Condition: Good Instructions: Acute Neck Pain (ED) Additional Instructions: You need close follow up with your primary care physician on Thursday. Return with increasing pain, headache, fever, vomiting, weakness, numbness or any other concerns. The MRI of your cervical spine was normal. Referrals: [facility] [Other] - 1-2 days without fail Prescriptions: Cyclobenzaprine [Flexeril] 10 mg PO TID #15 tab oxyCODONE/APAP 5/325 [Percocet 5/325 (*)] 1 - 2 tab PO Q4PRN PRN #15 tab PRN Reason: For Moderate To Severe Pain
[2017-10-10] MEDS ORDERED: DIAZEPAM 10 MG/2 ML SYR IVP ONE (13:48)
[2017-10-10 14:00] LABS: % IMMATURE GRANULYOCYTES 0.2 % (0.0-1.1); ABSOLUTE IMMATURE GRANULOCYTES 0.01 10^3/uL (0.00-0.10); ADD DIFF? NO; ADD MORPH? NO; ADD SCAN? NO; ATYPICAL LYMPHOCYTE FLAG 50 (0-99); FRAGMENT RBC FLAG 0 (0-99); HEMATOCRIT 35.7 % (38.0-47.0); HEMOGLOBIN 12.5 g/dL (12.6-16.3); LEFT SHIFT FLG 0 (0-99); LIPEMIA HEMOLYSIS FLAG 90 (0-99); MEAN CELL HEMOGLOBIN 30.6 pg (27.9-34.1); MEAN CELL VOLUME 87.3 fL (81.5-99.8); MEAN PLATELET VOLUME 9.4 fL (8.7-11.7); PLATELET CLUMPS FLAG 0 (0-99); PLATELET COUNT 325 10^3/uL (150-400); RED BLOOD CELL COUNT 4.09 10^6/uL (4.18-5.33); RED CELL DISTRIBUTION WIDTH 12.4 % (11.5-15.2)
[2017-10-10 14:07] LABS: ANION GAP 16 mEq/L (8-16); CALCIUM 9.7 mg/dL (8.5-10.4); CARBON DIOXIDE 21 mEq/l (22-31); CHLORIDE 107 mEq/L (97-110); CREATININE 0.8 mg/dL (0.6-1.0); GLOMERULAR FILTRATION RATE > 60; GLUCOSE 74 mg/dL (70-100); SODIUM 144 mEq/L (134-144)
[2017-10-10] MEDS ORDERED: KETOROLAC 30 MG/1 ML SDV IVP ONE (15:42)
[2017-10-10 15:52] VITALS: RESP 16
[2017-10-10 15:53] VITALS: BP 94/53; PULSE 52; TEMP 97.7; O2SAT 96
== END 2017-10-10 15:53 | disposition home or self-care (01) ==
LOC: EDUNIT#
DX: M54.2 Cervicalgia (principal); Z87.891 Personal history of nicotine dependence
CPT/HCPCS: 96374; J1885

== ENCOUNTER 2017-11-27 15:22 | Emergency (ER) | payer MEDICAID ==
[2017-11-27] MEDS ORDERED: fentaNYL 100 MCG/2 ML INJ IVP ONE (17:05)
[2017-11-27] MEDS ORDERED: DEXAMETHASONE 10 MG/ML VIAL IVP ONE (17:05)
[2017-11-27] MEDS ORDERED: NS 1,000 ML IV ONE (17:05)
[2017-11-27] MEDS ORDERED: ONDANSETRON 4 MG/2 ML VIAL IVP ONE (17:05)
[2017-11-27 17:15] LABS: PLATELET COUNT 329 10^3/uL (150-400)
[2017-11-27 17:37] VITALS: RESP 18
--- NOTE | 2017-11-27 17:38 | EDPHY ---
H & P Time Seen by Provider: 11/27/17 16:31 HPI/ROS: CHIEF COMPLAINT: Migraine, insomnia, syncope HISTORY OF PRESENT ILLNESS: The patient is a 19-year-old female who presents emergency department with multiple complaints. She states that she has had insomnia for the past 3 days. This is typical for G has intermittent episodes of significant insomnia. She states that she stopped taking Ambien because she has hallucinations on the medication. The patient states his typical for her to feel lightheaded and dizzy as well as developed migraine headaches when she has not slept. She developed a migraine headache today. This is typical of her migraine headache. She describes left-sided pain. She states that she had an episode of fainting. This occurred after feeling lightheaded and dizzy. She denies any trauma. Patient denies weakness or numbness. No focal deficits. No fevers or chills. No incontinence of urine or stool. REVIEW OF SYSTEMS: My complete review of systems is negative except as mentioned in the HPI. Past Medical/Surgical History: Includes insomnia, migraine, WPW, chronic pain Past surgical history: Ablation in 2011 Social history: Patient denies drugs or alcohol Smoking Status: Former smoker Physical Exam: 36.7, 132, 94/69, 17, 98% on room air. Repeat vital signs 36.8, 125, 115/83, 20 , 98 GENERAL: Mild acute distress, alert. HEENT: Eyes normal to inspection, normal pharynx, no signs of dehydration. NECK: No thyromegaly, no lymphadenopathy, supple. RESPIRATORY: Clear to auscultation bilaterally, no rales, rhonchi or wheezing. CVS: Regular rate and rhythm, no rubs, murmurs, or gallops. ABDOMEN: Soft, nontender, nondistended, no organomegaly. BACK: Normal to inspection, no CVA tenderness. SKIN: Normal color, no rash, warm, dry. No pallor. EXTREMITIES: No pedal edema, no calf tenderness, no Homans sign or cords, no joint swelling. NEURO/PSYCH: Higher functions: Alert and Oriented x3. Normal speech and cognition. Normal mood and affect. Cranial nerves: Normal as tested. Cerebellar: Normal as tested. Good finger to nose, good [id number], normal gait. Peripheral exam: Normal motor exam. Normal sensation. Normal reflexes. Constitutional: Initial Vital Signs Temperature (C) 36.7 C 01/26/18 15:36 Heart Rate 132 H 11/27/17 15:36 Respiratory Rate 17 11/27/17 15:36 Blood Pressure 94/69 L 11/27/17 15:36 O2 Sat (%) 98 11/27/17 15:36 O2 Delivery Mode Room Air O2 (L/minute) 98 Allergies/Adverse Reactions: Sulfa (Sulfonamide Antibiotics) Allergy (Verified 03/13/17 18:40) Home Medications: Medication Instructions Recorded Ambien 03/13/17 Vicodin 5-300 mg Tablet 03/13/17 Ibuprofen 600 mg PO TID #15 tablet 10/04/17 LORazepam [Ativan (*)] 1 mg PO TID #11 tab 10/04/17 oxyCODONE/APAP 5/325 [Percocet 1 - 2 tab PO Q4PRN PRN #11 tab 10/04/17 5/325 (*)] Cyclobenzaprine [Flexeril] 10 mg PO TID #15 tab 10/10/17 oxyCODONE/APAP 5/325 [Percocet 1 - 2 tab PO Q4PRN PRN #15 tab 10/10/17 5/325 (*)] Triazolam [Halcion 0.25MG (*)] 0.25 mg PO HS #4 tab 11/27/17 Medical Decision Making ED Course/Re-evaluation: In the emergency department discussed possible etiologies with the patient. I answered all her questions. IV was placed. The patient was given fentanyl 50 mcg IV, Zofran 4 mg IV, Decadron 10 mg IV for her headache. Laboratory studies were ordered. She was given normal saline 1 L IV for hydration. The patient's laboratory studies were unremarkable. is negative. The on recheck the patient has no focal neurologic deficits. She states her pain was mildly improved after the medication. She was given Dilaudid 0.5 mg IV and Toradol 30 mg IV. EKG shows normal sinus rhythm, normal rate, normal axis, normal intervals. There are no ST or T-wave abnormalities. EKG is normal as interpreted by me. 0: I went rechecked the patient. She stated she was feeling better. I offered admission for further care. However, she would prefer to be discharged. She states she has an appointment with the neurologist. She felt comfortable being discharged. She was given Halcion for sleep. Differential Diagnosis: My differential includes but is not limited to insomnia, WPW, electrolyte abnormality, sugar abnormality, migraine, subarachnoid hemorrhage, subdural hematoma, epidural hematoma, bacteremia, sepsis, dehydration - Data Points Laboratory Results: Laboratory Results 11/27/17 16:20 11/27/17 16:20 11/27/17 11/27/17 11/27/17 16:20 16:20 16:20 WBC 9.93 10^3/uL H 10^3/uL (3.80-9.50) RBC 5.15 10^6/uL 10^6/uL (4.18-5.33) Hgb 15.9 g/dL g/dL (12.6-16.3) Hct 44.8 % % (38.0-47.0) MCV 87.0 fL fL (81.5-99.8) MCH 30.9 pg pg (27.9-34.1) MCHC 35.5 g/dL g/dL (32.4-36.7) RDW 12.9 % % (11.5-15.2) Plt Count 329 10^3/uL 10^3/uL (150-400) MPV 9.5 fL fL (8.7-11.7) Neut % (Auto) 69.6 % % (39.3-74.2) Lymph % (Auto) 21.9 % % (15.0-45.0) [place] % (Auto) 6.4 % % (4.5-13.0) Eos % (Auto) 1.4 % % (0.6-7.6) Baso % (Auto) 0.4 % % (0.3-1.7) Nucleat RBC Rel Count 0.0 % % (0.0-0.2) Absolute Neuts (auto) 6.91 10^3/uL H 10^3/uL (1.70-6.50) Absolute Lymphs (auto) 2.17 10^3/uL 10^3/uL (1.00-3.00) Absolute Monos (auto) 0.64 10^3/uL 10^3/uL (0.30-0.80) Absolute Eos (auto) 0.14 10^3/uL 10^3/uL (0.03-0.40) Absolute Basos (auto) 0.04 10^3/uL 10^3/uL (0.02-0.10) Absolute Nucleated RBC 0.00 10^3/uL 10^3/uL (0-0.01) Immature Gran % 0.3 % % (0.0-1.1) Immature Gran # 0.03 10^3/uL 10^3/uL (0.00-0.10) Sodium 140 mEq/L mEq/L (135-145) Potassium 4.5 mEq/L mEq/L (3.5-5.2) Chloride 104 mEq/L mEq/L (97-110) Carbon Dioxide 20 mEq/l L mEq/l (22-31) Anion Gap 16 mEq/L mEq/L (8-16) BUN 4 mg/dL L mg/dL (7-23) Creatinine 0.6 mg/dL mg/dL (0.6-1.0) Estimated GFR > 60 Glucose 88 mg/dL mg/dL (70-100) Calcium 10.4 mg/dL mg/dL (8.5-10.4) Beta HCG, Qual NEGATIVE Medications Given: Discontinued Medications Dexamethasone (Decadron Injection) 10 mg IVP EDNOW ONE Stop: 11/27/17 17:06 Last Admin: 11/27/17 17:14 Dose: 10 mg Fentanyl (Sublimaze) 50 mcg IVP EDNOW ONE Stop: 11/27/17 17:06 Last Admin: 11/27/17 17:14 Dose: 50 mcg Hydromorphone HCl (Dilaudid) 0.5 mg IVP EDNOW ONE Stop: 11/27/17 18:09 Last Admin: 11/27/17 18:28 Dose: 0.5 mg Sodium Chloride (Ns) 1,000 mls @ 0 mls/hr IV ONCE ONE; Wide Open PRN Reason: Protocol Stop: 11/27/17 17:06 Last Admin: 11/27/17 17:14 Dose: 1,000 mls Ketorolac Tromethamine (Toradol) 30 mg IVP EDNOW ONE Stop: 11/27/17 18:09 Last Admin: 11/27/17 18:28 Dose: 30 mg Ondansetron HCl (Zofran) 4 mg IVP EDNOW ONE Stop: 11/27/17 17:06 Last Admin: 11/27/17 17:14 Dose: 4 mg Departure - Departure Disposition: Home, Routine, Self-Care Clinical Impression: Headache Qualifiers: Headache type: unspecified Headache chronicity pattern: acute headache Intractability: not intractable Qualified Code(s): R51 - Headache Insomnia Qualifiers: Insomnia type: unspecified Qualified Code(s): G47.00 - Insomnia, unspecified Condition: Good Instructions: Acute Headache (ED), Insomnia (ED) Additional Instructions: Return with increasing headache, weakness, numbness, visual change or any other concerns. Referrals: Gilmer Keller MD [Medical Doctor] - 5-7 days, call for appt. Prescriptions: Triazolam [Halcion 0.25MG (*)] 0.25 mg PO HS #4 tab
[2017-11-27] MEDS ORDERED: KETOROLAC 30 MG/1 ML SDV IVP ONE (18:08)
[2017-11-27] MEDS ORDERED: HYDROmorphONE/DILAUDID 1 MG/ML INJ IVP ONE (18:08)
--- NOTE | 2017-11-27 18:24 | CPEKG ---
Heart Rate: 65 RR Interval: 923 P-R Interval: 132 QRSD Interval: 80 QT Interval: 456 QTC Interval: 475 P [place]: 48 QRS [place]: 82 T Wave [place]: 18 EKG Severity - BORDERLINE ECG - EKG Impression: SINUS RHYTHM EKG Impression: BORDERLINE T ABNORMALITIES, ANTERIOR LEADS Electronically Signed By: Khoi German 29-Nov-2017 09:39:11
[2017-11-27 18:58] VITALS: TEMP 97.9; O2SAT 96
[2017-11-27 19:17] VITALS: BP 108/73; PULSE 65
== END 2017-11-27 19:32 | disposition home or self-care (01) ==
DX: G47.00 Insomnia, unspecified (principal); E86.9 Volume depletion, unspecified; Z87.891 Personal history of nicotine dependence
CPT/HCPCS: 96374; J1100; J1170; J1885; J2405; J3010

== ENCOUNTER 2018-02-27 19:48 | Emergency (ER) | payer MEDICAID ==
[2018-02-27] MEDS ORDERED: KETOROLAC 30 MG/1 ML SDV IVP ONE (20:13)
[2018-02-27] MEDS ORDERED: ONDANSETRON 4 MG/2 ML VIAL IVP ONE (20:13)
[2018-02-27] MEDS ORDERED: HYDROmorphONE/DILAUDID 2 MG/ML INJ IVP ONE (20:13)
[2018-02-27] MEDS ORDERED: NS 1,000 ML IV ONE (20:13)
[2018-02-27] MEDS ORDERED: OXYCODONE/APAP 5/325MG PREPACK#4 BTL TAKEHOME ONE (20:17)
--- NOTE | 2018-02-27 20:17 | EDPHY ---
H & P Stated Complaint: MENSTRUAL CRAMPS Time Seen by Provider: 02/27/18 20:02 - Personal History LMP (Females 10-55): Now Current Tetanus Diphtheria and Acellular Pertussis (TDAP): Yes - Medical/Surgical History Hx Asthma: No Hx Chronic Respiratory Disease: No Hx Diabetes: No Hx Cardiac Disease: No Hx Renal Disease: No Hx Cirrhosis: No Hx Alcoholism: No Hx HIV/AIDS: No Hx Splenectomy or Spleen Trauma: No Other PMH: Lap 11/13/14. WPW, ablation 2011. chronic pain - Social History Smoking Status: Former smoker Constitutional: Initial Vital Signs Temperature (C) 36.4 C 02/27/18 19:52 Heart Rate 111 H 02/27/18 19:52 Respiratory Rate 22 H 02/27/18 19:52 O2 Sat (%) 94 02/27/18 19:52 O2 Delivery Mode Room Air Allergies/Adverse Reactions: Sulfa (Sulfonamide Antibiotics) Allergy (Verified 03/13/17 18:40) Home Medications: Medication Instructions Recorded oxyCODONE/APAP 5/325 [Percocet 1 - 2 tab PO Q4PRN PRN #15 tab 10/10/17 5/325 (*)] oxyCODONE IR [Oxycodone Ir (*)] 5 - 10 mg PO Q6 PRN #10 tab 02/27/18 Medical Decision Making ED Course/Re-evaluation: CHIEF COMPLAINT: Severe menstrual cramps HISTORY OF PRESENT ILLNESS: The patient is a 22 y/o female with a history of endometriosis with severe menstrual cramps for which she is prescribed Percocet complaining of the same severe crampy pain tonight. No change in symptoms from prior episodes. No associated vomiting, urinary symptoms, abnormal vaginal discharge, fever. She has not taken any NSAIDs for her pain because they irritate her stomach. REVIEW OF SYSTEMS: A 10 point review of systems was performed and is negative with the exception of the elements mentioned in the history of present illness. PHYSICAL EXAM: HR, BP, O2 Sat, RR. Temp noted General Appearance: Alert, well hydrated, appropriate, and appears in pain rocking on the bed. Head: Atraumatic without scalp tenderness or obvious injury Eyes: Pupils equal, round, reactive to light and accommodation, EOMI, no trauma , no injection. Nose: Atraumatic, no rhinorrhea, clear. Throat:Mucus membranes moist. Neck: Supple Respiratory: No retractions, no distress, no wheezes, and no accessory muscle use. Lungs are clear to auscultation bilaterally. Cardiovascular: Regular rate and rhythm, no murmurs, rubs, or gallops. Good capillary refill all extremities. Gastrointestinal: Abdomen is soft, diffuse tenderness with voluntary guarding, non-distended, no masses, no rebound, no peritoneal signs. Musculoskeletal: Normal active ROM of all extremities, atraumatic. Neurological: Alert, appropriate, and interactive. The patient has non-focal cranial nerves, motor, sensory, and cerebellar exam. Skin: No rashes, good turgor, no nodules on palpation. PAST MEDICAL HISTORY: Endometriosis with severe menstrual cramps, chronic pain PAST SURGICAL HISTORY: WPW post ablation SOCIAL HISTORY: Mother at bedside. DIFFERENTIAL DIAGNOSIS: The differential diagnosis for the patient's abdominal pain included but was not limited to endometriosis, narcotic dependency, ovarian cyst, pelvic inflammatory disease, ovarian torsion, urinary tract infection, ectopic , cholecystitis, and appendicitis. MEDICAL DECISION MAKING: This is a 22 y/o female who presents with severe menstrual cramps not improved by home Percocet. She has diffuse abdominal tenderness and is rocking on the bed in pain. She reports current symptoms are exactly the same as prior episodes and is requesting symptom management only. 1mg IV Dilaudid, 4mg IV Zofran, 30mg IV Toradol, 1L IV NS ordered. Pain has improved and patient is ready to go home. She's been given a script for OxyIR and a prepack of Percocet for tonight. Recommended OBGYN follow up. Return precautions discussed. - Data Points Medications Given: Discontinued Medications Hydromorphone HCl (Dilaudid) 1 mg IVP EDNOW ONE Stop: 02/27/18 20:14 Last Admin: 02/27/18 20:23 Dose: 1 mg Sodium Chloride (Ns) 1,000 mls @ 0 mls/hr IV EDNOW ONE; Wide Open PRN Reason: Protocol Stop: 02/27/18 20:14 Last Admin: 02/27/18 20:22 Dose: 1,000 mls Ketorolac Tromethamine (Toradol) 30 mg IVP EDNOW ONE Stop: 02/27/18 20:14 Last Admin: 02/27/18 20:22 Dose: 30 mg Ondansetron HCl (Zofran) 4 mg IVP EDNOW ONE Stop: 02/27/18 20:14 Last Admin: 02/27/18 20:23 Dose: 4 mg Oxycodone/Acetaminophen (Percocet 5/325mg Prepack#4) 1 btl TAKEHOME EDNOW ONE Stop: 02/27/18 20:18 Last Admin: 02/27/18 20:26 Dose: 1 btl Departure - Departure Disposition: Home, Routine, Self-Care Clinical Impression: Severe menstrual cramps Condition: Good Instructions: Oxycodone, Rapid Release (By mouth), Dysmenorrhea (ED) Additional Instructions: 1. Take OxyIR as prescribed for severe pain. 2. Follow up with your OBGYN this week. 3. Return to the ED for worsening of condition. Referrals: [facility] [Other] - As per Instructions Jenn Barrios MD [Medical Doctor] - As per Instructions Prescriptions: oxyCODONE IR [Oxycodone Ir (*)] 5 - 10 mg PO Q6 PRN #10 tab PRN Reason: Pain, Severe Report Scribed for: Jarod Lopez Report Scribed by: Belkys Erickson Date of Report: 02/27/18 Time of Report: 20:17
[2018-02-27 22:19] VITALS: BP 108/70
== END 2018-02-27 22:14 | disposition home or self-care (01) ==
DX: N94.6 Dysmenorrhea, unspecified (principal); E86.9 Volume depletion, unspecified; Z87.891 Personal history of nicotine dependence
CPT/HCPCS: 96374; J1170; J1885; J2405

== ENCOUNTER 2018-12-13 10:57 | Emergency (ER) | payer MEDICAID ==
[2018-12-13 11:21] VITALS: BP 117/97
--- NOTE | 2018-12-13 12:23 | EDPHY ---
H & P Stated Complaint: cramps with period, 08/11 Time Seen by Provider: 12/13/18 12:07 HPI/ROS: CHIEF COMPLAINT: Menstrual cramping HISTORY OF PRESENT ILLNESS: Patient is a 23-year-old female with a history of severe menstrual cramping. She is followed by pain management nurse practitioner Michael Wang. She reports that she ran out of her oxycodone and so when her period began today called an ambulance to come here. She did however tell the ambulance that she was fired recently from her pain management provider and that she goes from ER to ER looking for pain medication. She tells me that she has tried multiple other types of nonnarcotic medications without improvement. She requested Dilaudid from the EMS who refused to give her any. She is requesting oxycodone from me. Severity: Severe Modifying factors: Only occurs during menses REVIEW OF SYSTEMS: Constitutional: denies: chills, fever, recent illness, recent injury EENTM: denies: blurred vision, double vision, nose congestion Respiratory: denies: cough, shortness of breath Cardiac: denies: chest pain, irregular heart rate, lightheadedness, palpitations Gastrointestinal/Abdominal: denies: abdominal pain, diarrhea, nausea, vomiting, blood streaked stools Genitourinary: See HPI denies: dysuria, frequency, hematuria, pain Musculoskeletal: denies: joint pain, muscle pain Skin: denies: lesions, rash, jaundice, bruising Neurological: denies: headache, numbness, paresthesia, tingling, dizziness, weakness Hematologic/Lymphatic: denies: blood clots, easy bleeding, easy bruising Immunologic/allergic: denies: HIV/AIDS, transplant 10 systems reviewed and negative except as noted EXAM: GENERAL: Bent over in bed, texting on her phone.. HEAD: Atraumatic, normocephalic. EYES: Pupils equal round and reactive to light, extraocular movements intact, sclera anicteric, conjunctiva are normal. ENT: TMs normal, nares patent, oropharynx clear without exudates. Moist mucous membranes. NECK: Normal range of motion, supple without lymphadenopathy or JVD. LUNGS: Breath sounds clear to auscultation bilaterally and equal. No wheezes rales or rhonchi. HEART: Regular rate and rhythm without murmurs, rubs or gallops. ABDOMEN: Soft, nontender, normoactive bowel sounds. No guarding, no rebound. No masses appreciated. BACK: No CVA tenderness, no spinal tenderness, step-offs or deformities EXTREMITIES: Normal range of motion, no pitting or edema. No clubbing or cyanosis. NEUROLOGICAL: Cranial nerves II through XII grossly intact. Normal speech, normal gait. 5/5 strength, normal movement in all extremities, normal sensation , normal reflexes PSYCH: Normal mood, normal affect. SKIN: Warm, dry, normal turgor, no visible rashes or lesions. Source: Patient Exam Limitations: No limitations - Personal History LMP (Females 10-55): Now Current Tetanus/Diphtheria Vaccine: No Current Tetanus Diphtheria and Acellular Pertussis (TDAP): No - Medical/Surgical History Hx Asthma: No Hx Chronic Respiratory Disease: No Hx Diabetes: No Hx Cardiac Disease: No Hx Renal Disease: No Hx Cirrhosis: No Hx Alcoholism: No Hx HIV/AIDS: No Hx Splenectomy or Spleen Trauma: No Other PMH: Lap 11/13/14. WPW, ablation 2011. chronic abdominal pain. bilateral panuritis - Social History Smoking Status: Never smoked Alcohol Use: None Constitutional: Initial Vital Signs Temperature (C) 36.9 C 12/13/18 10:57 Heart Rate 82 12/13/18 10:57 Respiratory Rate 18 12/13/18 10:57 Blood Pressure 117/97 H 12/13/18 10:57 O2 Sat (%) 100 12/13/18 10:57 O2 Delivery Mode Room Air Allergies/Adverse Reactions: Sulfa (Sulfonamide Antibiotics) Allergy (Verified 03/13/17 18:40) Home Medications: Medication Instructions Recorded oxyCODONE/APAP 5/325 [Percocet 1 - 2 tab PO Q4PRN PRN #15 tab 10/10/17 5/325 (*)] oxyCODONE IR [Oxycodone Ir (*)] 5 - 10 mg PO Q6 PRN #10 tab 02/27/18 Medical Decision Making ED Course/Re-evaluation: The patient initially seemed to be in significant pain however as I began talking with her, her pain seemed to be for gotten. I did challenge her concerning the statements she made to EMS and notified her of our policy not to provide narcotics for chronic recurring pain or people who are managed by pain management. She became angry with this. I did offer her nonnarcotic options but she states she has tried all of these and they do not work. At this point I apologize that I cannot offer her narcotics and advised her to follow up with her pain management doctor's office that is currently open. Differential Diagnosis: Partial list of the Differential diagnosis considered include but were not limited to; dysmenorrhea, opiate dependency, Addiction, drug-seeking behavior, and although unlikely based on the history and physical exam, I also considered , appendicitis, obstruction, constipation. I discussed these differential diagnoses and the plan with the patient as well as the usual and expected course. The patient understands that the diagnosis is provisional and that in medicine we are not always correct and that further workup is often warranted. Usual and customary warnings were given. All of the patient's questions were answered. The patient was instructed to return to the emergency department should the symptoms at all worsen or return, otherwise to followup with the physician as we discussed. - Data Points Medications Given: Discontinued Medications Ibuprofen (Motrin) 600 mg PO EDNOW ONE Stop: 12/13/18 12:25 Last Admin: 12/13/18 12:31 Dose: 600 mg Departure - Departure Disposition: Home, Routine, Self-Care Clinical Impression: Menstrual pain Opiate dependence Qualifiers: Substance use status: uncomplicated Qualified Code(s): F11.20 - Opioid dependence, uncomplicated Condition: Good Instructions: Dysmenorrhea (ED), Narcotic Use Disorder (ED) Referrals: NONE *PRIMARY CARE P,. [Primary Care Provider] - As per Instructions (Michael Wang)
[2018-12-13] MEDS ORDERED: IBUPROFEN 600 MG TAB PO ONE (12:24)
== END 2018-12-13 12:47 | disposition home or self-care (01) ==
LOC: EDUNIT#
DX: N94.6 Dysmenorrhea, unspecified (principal); F11.20 Opioid dependence, uncomplicated